=== PATIENT | male | born 1990 | race African-American/Black ===

== ENCOUNTER 2016-07-22 09:37 | Emergency (ER) | payer OTHER ==
[2016-07-22 09:37] LABS: URINE SOURCE CLEAN CATCH
[~2016-07-22 09:37] MED LIST: KEFLEX500 M1 PO; MOTRIN600 M1 PO
[2016-07-22 09:44] LABS: URINE APPEARANCE CLEAR; URINE BLOOD NEG (NEG); URINE COLOR DK YELLOW; URINE GLUCOSE NEG (NEG); URINE KETONE 1+ (NEG); URINE LEUKOCYTE ESTERASE NEG (NEG); URINE NITRATE NEG (NEG); URINE PROTEIN 1+ (NEG); URINE SPECIFIC GRAVITY 1.041 (1.003-1.035)
[2016-07-22 09:47] LABS: URINE BACTERIA AUWI NEG (NEGATIVE); URINE SQUAMOUS EPITHELIAL CELL NONE SEEN /[HPF]; UWBCS1 AUWI 0-2 (0-5)
[2016-07-22 09:55] LABS: CULTURE INDICATED? NO; URINE BILIRUBIN NEG (NEG)
[2016-07-24 01:55] LABS: CHLAMYDIA TRACH Not Detected (Not Detected); N GONOR Not Detected (Not Detected)
== END 2016-07-22 09:38 | disposition home or self-care (01) ==
LOC: CFTX 09:37
PROVIDERS: Physician Assistant Medical
DX: R03.0 Elevated blood-pressure reading, without diagnosis of hypertension (principal)
CPT/HCPCS: 81003; 87491; 87591; 99283